=== PATIENT | female | born 1935 | race African-American/Black ===

== ENCOUNTER 2021-09-26 17:00 | Emergency (ER) | payer OTHER ==
[~2021-09-26] VITALS: Ht 162.6 cm; Wt 103.0 kg
[2021-09-26] MEDS ORDERED: KETOROLAC 30MG/ML VIAL IV STA (17:38)
[2021-09-26] MEDS ORDERED: SODIUM CHLORIDE 0.9% 1,000 ML IV ONE (17:45)
[2021-09-26] MEDS ORDERED: TRAMADOL 50MG TABLET PO ONE (21:30)
[2021-09-26] MEDS ORDERED: KETOROLAC 60MG/2ML VIAL IM ONE (21:30)
[2021-09-26] MEDS ORDERED: IBUP-2028 MT (21:38)
[2021-09-27 03:00] VITALS: BP 179/53
== END 2021-09-27 03:25 | disposition home or self-care (01) ==
LOC: ER 17:00
DX: L03.116 Cellulitis of left lower limb (principal); L03.115 Cellulitis of right lower limb; I11.0 Hypertensive heart disease with heart failure; I50.9 Heart failure, unspecified; E11.9 Type 2 diabetes mellitus without complications; E78.00 Pure hypercholesterolemia, unspecified
CPT/HCPCS: 71045; 93005; 93970; 96372; 99284; J1885; J7030

== ENCOUNTER 2021-10-06 22:04 | Inpatient (IN) | payer OTHER ==
[~2021-10-06] VITALS: Ht 165.1 cm; Wt 79.5 kg
[~2021-10-06 22:04] MED LIST: IBUP-2028 MT
[2021-10-07 01:17] LABS: CHLORIDE 104 mEq/L (98-107)
[2021-10-07 01:27] LABS: CREATINE KINASE 86 IU/L (26-192)
[2021-10-07 01:56] LABS: CLARITY URINE TURBID (CLEAR); COLOR URINE YELLOW (YELLOW); KETONES URINE TRACE (NEGATIVE); LEUKOCYTE ESTERASE URINE 2+ (NEGATIVE); NITRITE URINE NEGATIVE (NEGATIVE); OCCULT BLOOD URINE NEGATIVE (NEGATIVE); PH URINE 6.5 (4.5-8.0); PROTEIN URINE 1+ (NEGATIVE); SPECIFIC GRAVITY URINE 1.018 (1.005-1.030); UROBILINOGEN URINE 0.2 E.U./dL (0.2-1.0)
[2021-10-07] MEDS ORDERED: POTASSIUM CHLORIDE 20MEQ TABLET SR PO NR ×2 (02:30→09:45)
[2021-10-07] MEDS ORDERED: CEFTRIAXONE 1 G PREMIX 50 ML IV NR (02:30)
[2021-10-07 03:57] LABS: BASOPHILS % 0.8 % (0.0-2.0); EOSINOPHILS % 1.7 % (0.0-5.0); HEMATOCRIT. 35.2 % (36.0-48.0); HEMOGLOBIN. 11.7 g/dL (12.0-16.0); LYMPHOCYTES % 24.5 % (20.0-50.0); MEAN CORPUSCULAR VOLUME 90.4 fL (81.0-99.0); MEAN PLATELET VOLUME 9.8 fl (7.4-10.4); PLATELET 153 x1000/uL (130-400); RED BLOOD CELL COUNT 3.89 mill/uL (4.2-5.4); RED CELL DISTRIBUTION WIDTH 15.2 % (11.6-14.6)
[2021-10-07] MEDS ORDERED: IPRATROPIUM/ALBUTEROL 0.5-3(2.5)MG/3ML NEB NEB PRN (09:45)
[2021-10-07] MEDS ORDERED: NITROGLYCERIN 0.4MG TABLET SL SL PRN (09:45)
[2021-10-07] MEDS ORDERED: NA PHOS,M-B/NA PHOS,DI-BA ENEMA 118ML PR PRN (09:45)
[2021-10-07] MEDS ORDERED: MAGNESIUM/ALUMINUM HYDROXIDE/SIMETHICONE 30ML UDC PO PRN (09:45)
[2021-10-07] MEDS ORDERED: KCL 20MEQ/100ML PREMIX 100 ML IV NR ×2 (09:45→11:30)
[2021-10-07] MEDS ORDERED: CLONIDINE 0.1MG TABLET PO PRN (09:45)
[2021-10-07] MEDS ORDERED: DOCUSATE SODIUM 100MG CAPSULE PO PRN (09:45)
[2021-10-07] MEDS ORDERED: ONDANSETRON HCL 4MG/2ML INJ IV PRN (09:45)
[2021-10-07] MEDS ORDERED: DEXTROSE 50% WATER 50ML SYRINGE IV PRN (09:45)
[2021-10-07] MEDS ORDERED: TRAMADOL 50MG TABLET PO PRN (09:45)
[2021-10-07] MEDS ORDERED: KETOROLAC 15MG/ML VIAL IV PRN (09:45)
[2021-10-07] MEDS ORDERED: ACETAMINOPHEN 325MG TABLET PO PRN ×2 (09:45)
[2021-10-07] MEDS ORDERED: GUAIFENESIN 200MG/10ML SUGAR FREE UDC PO PRN (09:45)
[2021-10-07] MEDS ORDERED: NALOXONE HCL 0.4MG/ML VIAL IV PRN (10:00)
[2021-10-07] MEDS ORDERED: LEVOFLOXACIN 500MG PREMIX 100 ML IV SCH ×2 (10:00→11:00)
[2021-10-07] MEDS: BLOOD SUGAR DIAGNOSTIC STRIP TEST SCH ×3 (11:40→21:21)
[2021-10-07 11:52] VITALS: BP 148/62
[2021-10-07 12:00] VITALS: BP 148/62
[2021-10-07] MEDS: INSULIN LISPRO 100 UNITS/ML SUBCUT SCH ×3 (12:10→21:00)
[2021-10-07 12:31] LABS: FOLIC ACID (FOLATE) SERUM >20 ng/mL ng/mL (>5.38); VITAMIN B12 SERUM 1890 pg/mL (211-911)
[2021-10-07] MEDS ORDERED: TRAM50TA3 PO (12:37)
[2021-10-07] MEDS ORDERED: METO25TA6 PO (12:37)
[2021-10-07] MEDS ORDERED: ATOR40TA70 PO (12:37)
[2021-10-07] MEDS ORDERED: LOSA100T32 PO (12:37)
[2021-10-07] MEDS ORDERED: GABA-529 PO (12:37)
[2021-10-07] MEDS ORDERED: CEPH500C2 PO (12:37)
[2021-10-07] MEDS ORDERED: LATA2.5D14 EACHEYE (12:37)
[2021-10-07] MEDS ORDERED: DOXY100T29 PO (12:37)
[2021-10-07] MEDS ORDERED: MELO-104 PO (12:37)
[2021-10-07] MEDS ORDERED: FURO20TA4 PO (12:37)
[2021-10-07] MEDS: ZINC SULFATE 220 MG ( 50 ) CAPSULE PO SCH (13:18)
[2021-10-07] MEDS: CHOLECALCIFEROL (D3) 1000 UNIT TABLET PO SCH (13:18)
[2021-10-07] MEDS: ASCORBIC ACID 500 MG TABLET PO SCH ×2 (13:18→21:19)
[2021-10-07] MEDS: LOSARTAN POTASSIUM 50 MG TABLET PO SCH (13:18)
[2021-10-07] MEDS: SPIRONOLACTONE 25MG TABLET PO SCH ×2 (13:19→21:20)
[2021-10-07] MEDS: ASPIRIN 325MG EC TABLET PO SCH (13:19)
[2021-10-07] MEDS: ENOXAPARIN 40MG/0.4ML SYR SUBCUT SCH (13:20)
[2021-10-07] MEDS ORDERED: LIDOCAINE HCL 1% 10 MG/ML 10ML VIAL ONE (13:24)
[2021-10-07 16:00] VITALS: BP 168/59
[2021-10-07 17:00] VITALS: BP 144/64
[2021-10-07 20:00] VITALS: BP 140/51
[2021-10-07 20:55] LABS: CREATINE KINASE MB FRACTION 3.1 ng/mL (0.5-3.6)
[2021-10-07] MEDS ORDERED: ZOLPIDEM TARTRATE 5MG TABLET PO PRN (21:00)
[2021-10-07] MEDS ORDERED: CEFTRIAXONE 1,000 MG in DEXTROSE 5% WATER 50 ML IV SCH ×4 (21:00)
[2021-10-07] MEDS ORDERED: FAMOTIDINE 20MG TABLET PO SCH (21:00)
[2021-10-08] VITALS: BP 132/59
[2021-10-08 00:44] LABS: CREATINE KINASE MB FRACTION 2.9 ng/mL (0.5-3.6)
[2021-10-08 04:00] VITALS: BP 128/58
[2021-10-08] MEDS: BLOOD SUGAR DIAGNOSTIC STRIP TEST SCH ×2 (06:39→12:34)
[2021-10-08 07:03] LABS: BASOPHILS % 0.7 % (0.0-2.0); EOSINOPHILS % 2.1 % (0.0-5.0); HEMATOCRIT. 30.4 % (36.0-48.0); HEMOGLOBIN. 10.3 g/dL (12.0-16.0); LYMPHOCYTES % 27.2 % (20.0-50.0); MEAN CORPUSCULAR HEMOGLOBIN 30.8 pg (28.0-32.0); RED BLOOD CELL COUNT 3.35 mill/uL (4.2-5.4)
[2021-10-08] MEDS: INSULIN LISPRO 100 UNITS/ML SUBCUT SCH ×2 (07:10→12:10)
[2021-10-08 07:11] LABS: CHLORIDE 109 mEq/L (98-107)
[2021-10-08 07:28] LABS: PHOSPHORUS 2.2 mg/dL (2.5-4.9)
[2021-10-08 08:00] VITALS: BP 164/64
[2021-10-08] MEDS: LOSARTAN POTASSIUM 50 MG TABLET PO SCH (08:55)
[2021-10-08] MEDS: SPIRONOLACTONE 25MG TABLET PO SCH (08:55)
[2021-10-08] MEDS: ZINC SULFATE 220 MG ( 50 ) CAPSULE PO SCH (08:55)
[2021-10-08] MEDS: ASPIRIN 325MG EC TABLET PO SCH (08:55)
[2021-10-08] MEDS: CHOLECALCIFEROL (D3) 1000 UNIT TABLET PO SCH (08:55)
[2021-10-08] MEDS: ENOXAPARIN 40MG/0.4ML SYR SUBCUT SCH (08:55)
[2021-10-08] MEDS ORDERED: CEFTRIAXONE 1 G PREMIX 50 ML IV SCH (09:00)
[2021-10-08] MEDS: ASCORBIC ACID 500 MG TABLET PO SCH (09:27)
[2021-10-08 09:53] LABS: *AMPHETAMINES SCREEN URINE NEGATIVE (NEGATIVE); *BARBITURATES SCREEN URINE NEGATIVE (NEGATIVE); *BENZODIAZEPINES SCREEN URINE NEGATIVE (NEGATIVE); *COCAINE SCREEN URINE NEGATIVE (NEGATIVE); CANNABINOID URINE SCREEN NEGATIVE (NEGATIVE); METHADONE URINE SCREEN NEGATIVE (NEGATIVE); OPIATES URINE SCREEN NEGATIVE (NEGATIVE); PHENCYCLIDINE URINE SCREEN NEGATIVE (NEGATIVE)
[2021-10-08 10:57] LABS: MEAN PLATELET VOLUME 10.8 fl (7.4-10.4)
[2021-10-08 10:58] LABS: PLATELET 117 x1000/uL (130-400)
[2021-10-08 12:00] VITALS: BP 161/64
[2021-10-08] MEDS ORDERED: VANCOMYCIN 1500MG in DEXTROSE 5% WATER 250ML IV NR (13:00)
[2021-10-08 13:17] VITALS: BP 161/64
[2021-10-08] MEDS ORDERED: PIPERACILLIN/TAZOBACTAM 3.375 G in DEXTROSE 5% WATER 50 ML IV SCH (14:00)
[2021-10-09] MEDS ORDERED: VANCOMYCIN 1G PREMIX 200 ML IV SCH (12:00)
== END 2021-10-08 14:00 | disposition short-term general hospital (02) | DRG 871 ==
LOC: ER 22:04 → CANBEDREQ 10-07 04:59 → 7EST 10-07 07:15 → EDBEDREQ 10-07 07:26 → ENRESERV 10-07 08:55
PROVIDERS: ADMIT Internal Medicine; ATTEND Internal Medicine
PROC: 05H433Z Insertion of Infusion Device into Left Innominate Vein, Percutaneous Approach (ICD-10-PCS; principal; 2021-10-08)
PROC: B54NZZA Ultrasonography of Left Upper Extremity Veins, Guidance (ICD-10-PCS; 2021-10-08)
DX: A41.9 Sepsis, unspecified organism (principal); U07.1 COVID-19; E44.1 Mild protein-calorie malnutrition; N39.0 Urinary tract infection, site not specified; L03.116 Cellulitis of left lower limb; L03.115 Cellulitis of right lower limb; I89.0 Lymphedema, not elsewhere classified; E87.6 Hypokalemia; E11.9 Type 2 diabetes mellitus without complications; E78.00 Pure hypercholesterolemia, unspecified; I11.0 Hypertensive heart disease with heart failure; I50.9 Heart failure, unspecified; M19.90 Unspecified osteoarthritis, unspecified site; D64.9 Anemia, unspecified; Z88.8 Allergy status to other drugs, medicaments and biological substances; Z88.6 Allergy status to analgesic agent; Z88.1 Allergy status to other antibiotic agents; Z91.041 Radiographic dye allergy status; Z79.1 Long term (current) use of non-steroidal anti-inflammatories (NSAID); Z79.899 Other long term (current) drug therapy; Z68.29 Body mass index [BMI] 29.0-29.9, adult; Z98.890 Other specified postprocedural states
CPT/HCPCS: 36415; 36573; 71045; 80053; 80061; 80305; 81003; 82550; 82553; 82607; 82746; 82962; 83036; 83540; 83550; 83605; 83735; 83880; 84100; 84145; 84443; 84484; 85025; 87426; 87804; 93005; 93970; 99285; C1725; C1769; C9803; J0696; J1650; J1956; J2543; J3370; J3480; J3490; J7060

== ENCOUNTER 2021-11-16 20:28 | Emergency (ER) | payer MEDICARE, OTHER ==
[~2021-11-16] VITALS: Ht 172.7 cm; Wt 127.0 kg
[~2021-11-16 20:28] MED LIST changes: +ATOR40TA70 PO; +CEPH500C2 PO; +DOXY100T29 PO; +FURO20TA4 PO; +GABA-529 PO; +LATA2.5D14 EACHEYE; +LOSA100T32 PO; +MELO-104 PO; +METO25TA6 PO; +TRAM50TA3 PO
[2021-11-16] MEDS ORDERED: ASPIRIN 81MG TABLET PO ONE (20:45)
[2021-11-16 22:09] LABS: BASOPHILS % 0.9 % (0.0-2.0); EOSINOPHILS % 2.9 % (0.0-5.0); HEMATOCRIT. 30.9 % (36.0-48.0); HEMOGLOBIN. 10.2 g/dL (12.0-16.0); LYMPHOCYTES % 13.6 % (20.0-50.0); MEAN CORPUSCULAR HEMOGLOBIN 30.6 pg (28.0-32.0); MEAN CORPUSCULAR VOLUME 92.6 fL (81.0-99.0); MEAN PLATELET VOLUME 9.7 fl (7.4-10.4); MONOCYTES % 8.2 % (2.0-8.0); NEUTROPHILS % 74.4 % (40.0-76.0); PLATELET 140 x1000/uL (130-400); RED BLOOD CELL COUNT 3.34 mill/uL (4.2-5.4); RED CELL DISTRIBUTION WIDTH 15.8 % (11.6-14.6)
[2021-11-16 22:26] LABS: CHLORIDE 101 mEq/L (98-107)
[2021-11-16] MEDS ORDERED: SODIUM CHLORIDE 0.9% 1000ML BAG (SEPSIS BOLUS) IV NR (23:15)
[2021-11-17 06:04] VITALS: BP 113/50
== END 2021-11-17 06:36 | disposition short-term general hospital (02) ==
LOC: ER 20:28
DX: R55 Syncope and collapse (principal); N28.9 Disorder of kidney and ureter, unspecified; U07.1 COVID-19; I11.0 Hypertensive heart disease with heart failure; I50.9 Heart failure, unspecified; E11.9 Type 2 diabetes mellitus without complications; E78.00 Pure hypercholesterolemia, unspecified; Z79.899 Other long term (current) drug therapy; Z20.822 Contact with and (suspected) exposure to COVID-19
CPT/HCPCS: 36415; 70450; 71045; 80053; 83605; 83690; 83880; 84484; 85025; 87426; 93005; 96360; 96361; 99291; C9803; J7030

== ENCOUNTER 2024-09-13 01:26 | Emergency (ER) | payer OTHER ==
[~2024-09-13] VITALS: Ht 167.6 cm; Wt 84.0 kg
[~2024-09-13 01:26] MED LIST changes: -LATA2.5D14 EACHEYE; +LATA2.5D7 EACHEYE; -LOSA100T32 PO; +LOSA100T33 PO
[2024-09-13 01:30] VITALS: O2SAT 98
[2024-09-13 01:54] VITALS: TEMP 36.8
[2024-09-13 01:56] LABS: BASOPHILS % 0.6 % (0.0-2.0); EOSINOPHILS % 3.1 % (0.0-5.0); HEMATOCRIT. 32.1 % (36.0-48.0); HEMOGLOBIN. 10.4 g/dL (12.0-16.0); LYMPHOCYTES % 35.8 % (20.0-50.0); MEAN CORPUSCULAR HEMOGLOBIN 31.7 pg (28.0-32.0); MEAN CORPUSCULAR HGB CONC 32.3 g/dL (31.0-37.0); MONOCYTES % 10.6 % (2.0-8.0); NEUTROPHILS % 49.9 % (40.0-76.0); PLATELET 157 x1000/uL (130-400); RED BLOOD CELL COUNT 3.28 mill/uL (4.2-5.4); RED CELL DISTRIBUTION WIDTH 14.9 % (11.6-14.6); WHITE BLOOD COUNT 7.9 x1000/uL (4.5-11.0)
[2024-09-13 02:04] LABS: CHLORIDE 103 mEq/L (98-107); POTASSIUM 4.5 mEq/L (3.5-5.1); SODIUM 139 mEq/L (136-145)
[2024-09-13 02:05] LABS: CALCIUM 9.4 mg/dL (8.7-10.4); CARBON DIOXIDE 28 mEq/L (21-32)
[2024-09-13 02:10] LABS: CREATININE 1.1 mg/dL (0.6-1.0); GLUCOSE 129 mg/dL (70-105); UREA NITROGEN BLOOD 18 mg/dL (9-23)
[2024-09-13 02:11] LABS: ETHANOL BLOOD < 10 mg/dL (<10); TROPONIN I HIGH SENSITIVITY 6 ng/L (3.0-34)
[2024-09-13 02:45] LABS: PROTHROMBIN TIME 10.4 sec (9.6-11.0)
[2024-09-13 04:21] LABS: *AMPHETAMINES SCREEN URINE NEGATIVE (NEGATIVE); *BARBITURATES SCREEN URINE NEGATIVE (NEGATIVE); *BENZODIAZEPINES SCREEN URINE NEGATIVE (NEGATIVE); *COCAINE SCREEN URINE NEGATIVE (NEGATIVE); CANNABINOID URINE SCREEN NEGATIVE (NEGATIVE); CLARITY URINE CLEAR (CLEAR); COLOR URINE YELLOW (YELLOW); GLUCOSE URINE NEGATIVE (NEGATIVE); KETONES URINE NEGATIVE (NEGATIVE); LEUKOCYTE ESTERASE URINE 3+ (NEGATIVE); METHADONE URINE SCREEN NEGATIVE (NEGATIVE); NITRITE URINE NEGATIVE (NEGATIVE); OCCULT BLOOD URINE NEGATIVE (NEGATIVE); OPIATES URINE SCREEN NEGATIVE (NEGATIVE); PHENCYCLIDINE URINE SCREEN NEGATIVE (NEGATIVE); PROTEIN URINE NEGATIVE (NEGATIVE); SPECIFIC GRAVITY URINE 1.006 (1.005-1.030); UROBILINOGEN URINE 0.2 E.U./dL (0.2-1.0)
[2024-09-13 04:22] LABS: ECSTASY MDMA SCREEN URINE NEGATIVE (NEGATIVE)
[2024-09-13 04:48] VITALS: BP 135/35; PULSE 80; RESP 13; O2SAT 97
[2024-09-13 04:48] LABS: SQUAMOUS EPITHELIAL CELL URINE 3+ /lpf (RARE/1+)
[2024-09-13 04:49] LABS: AMORPHOUS SEDIMENT URINE 1+ /lpf; BACTERIA URINE 1+; RBC URINE 0-2 /hpf (0-2)
== END 2024-09-13 05:27 | disposition short-term general hospital (02) ==
LOC: ER 01:26
DX: R60.0 Localized edema (principal); R26.9 Unspecified abnormalities of gait and mobility; I11.0 Hypertensive heart disease with heart failure; I50.9 Heart failure, unspecified; E11.9 Type 2 diabetes mellitus without complications; E78.00 Pure hypercholesterolemia, unspecified; Z00.00 Encounter for general adult medical examination without abnormal findings; Z91.041 Radiographic dye allergy status; Z88.8 Allergy status to other drugs, medicaments and biological substances; Z88.5 Allergy status to narcotic agent; Z79.899 Other long term (current) drug therapy
CPT/HCPCS: 36415; 71045; 80048; 80305; 80320; 81003; 83880; 84484; 85025; 93005; 93970; 99285; G0480

== ENCOUNTER 2024-10-25 16:56 | Emergency (ER) | payer OTHER ==
[~2024-10-25] VITALS: Ht 167.6 cm; Wt 127.0 kg
[~2024-10-25 16:56] MED LIST changes: +LATA2.5D14 EACHEYE; -LATA2.5D7 EACHEYE
[2024-10-25 17:00] VITALS: O2SAT 100
[2024-10-25 18:08] LABS: BASOPHILS % 0.4 % (0.0-2.0); EOSINOPHILS % 0.8 % (0.0-5.0); HEMATOCRIT. 31.0 % (36.0-48.0); HEMOGLOBIN. 9.9 g/dL (12.0-16.0); LYMPHOCYTES % 8.7 % (20.0-50.0); MEAN PLATELET VOLUME 8.7 fl (7.4-10.4); MONOCYTES % 9.1 % (2.0-8.0); NEUTROPHILS % 81.0 % (40.0-76.0); PLATELET 156 x1000/uL (130-400); RED BLOOD CELL COUNT 3.25 mill/uL (4.2-5.4); RED CELL DISTRIBUTION WIDTH 14.4 % (11.6-14.6)
[2024-10-25 18:15] LABS: INR 1.1
[2024-10-25 18:19] LABS: CREATININE 1.0 mg/dL (0.6-1.0); TROPONIN I HIGH SENSITIVITY 7 ng/L (3.0-34); UREA NITROGEN BLOOD 18 mg/dL (9-23)
[2024-10-25 18:20] LABS: ASPARTATE AMINOTRANSFERASE 12 IU/L (<34)
[2024-10-25 18:21] LABS: BILIRUBIN DIRECT 0.2 mg/dL (<=3.0); BILIRUBIN TOTAL 0.5 mg/dL (0.1-1.0); PROTEIN TOTAL 7.2 g/dL (6.0-8.3)
[2024-10-25 18:41] LABS: ERYTHROCYTE SEDIMENTATION RATE 106 mm/hr (0-42)
[2024-10-25] MEDS: MORPHINE SULFATE 4 MG/ML INJ (FOR IV/IM USE) IV ONE (19:16)
[2024-10-25] MEDS: FUROSEMIDE 40MG/4ML VIAL IVP ONE (19:16)
[2024-10-25] MEDS: CEFEPIME 2GM/100ML 100 ML IV SCH (20:09)
[2024-10-25] MEDS: VANCOMYCIN 2GM PMX (XELLIA) 400 ML IV SCH (20:43)
[2024-10-25 21:25] VITALS: BP 140/56; PULSE 106; RESP 20; TEMP 36.8; O2SAT 99
[2024-10-25] MEDS ORDERED: CEFEPIME 2GM/50ML DUPLEX 50 ML IV SCH (22:00)
== END 2024-10-25 21:54 | disposition short-term general hospital (02) ==
LOC: ER 16:56 → CMPBEDREQ 10-26 07:34
DX: L03.116 Cellulitis of left lower limb (principal); R26.2 Difficulty in walking, not elsewhere classified; E11.9 Type 2 diabetes mellitus without complications; E78.00 Pure hypercholesterolemia, unspecified; I11.0 Hypertensive heart disease with heart failure; I50.9 Heart failure, unspecified; Z91.041 Radiographic dye allergy status; Z88.8 Allergy status to other drugs, medicaments and biological substances; Z88.5 Allergy status to narcotic agent; Z79.899 Other long term (current) drug therapy
CPT/HCPCS: 99285; 93970; 96365; 96375; 71045; 80076; 80048; 83880; 83735; 85025; 85610; 85651; 85730; 84484; 36415; 93005; J3373; J0692; J1938; J2270; A4606

== ENCOUNTER 2024-12-27 15:17 | Emergency (ER) | payer OTHER ==
[~2024-12-27] VITALS: Ht 162.6 cm; Wt 109.0 kg
[~2024-12-27 15:17] MED LIST changes: -LATA2.5D14 EACHEYE; +LATA2.5D7 EACHEYE
[2024-12-27 15:21] VITALS: O2SAT 100
[2024-12-27] MEDS: SODIUM CHLORIDE 0.9% 1,000 ML IV ONE (16:20)
[2024-12-27] MEDS: ACETAMINOPHEN 500MG TABLET PO ONE (16:41)
[2024-12-27 18:15] LABS: HEMATOCRIT. 27.7 % (36.0-48.0); HEMOGLOBIN. 9.1 g/dL (12.0-16.0); MEAN PLATELET VOLUME 8.4 fl (7.4-10.4); PLATELET 101 x1000/uL (130-400); RED BLOOD CELL COUNT 2.93 mill/uL (4.2-5.4); RED CELL DISTRIBUTION WIDTH 17.0 % (11.6-14.6)
[2024-12-27 18:28] LABS: INR 1.0
[2024-12-27 18:30] LABS: TROPONIN I HIGH SENSITIVITY 7 ng/L (3.0-34)
[2024-12-27 18:31] LABS: UREA NITROGEN BLOOD 24 mg/dL (9-23)
[2024-12-27 18:32] LABS: ASPARTATE AMINOTRANSFERASE 69 IU/L (<34)
[2024-12-27 18:33] LABS: BILIRUBIN DIRECT < 0.1 mg/dL (<=3.0); BILIRUBIN TOTAL 0.2 mg/dL (0.1-1.0); PROTEIN TOTAL 6.3 g/dL (6.0-8.3)
[2024-12-27 18:34] LABS: CREATININE 1.6 mg/dL (0.6-1.0)
[2024-12-27 19:15] LABS: EOSINOPHILS % MANUAL 18.0 % (0.0-5.0); LYMPHOCYTES % MANUAL 19.0 % (20.0-60.0); MONOCYTES % MANUAL 9.0 % (2.0-8.0); NEUTROPHILS % MANUAL 54.0 % (45.0-75.0); PLATELET ESTIMATE SLIGHTLY DECREASED
[2024-12-27 22:30] VITALS: BP 129/85; PULSE 61; RESP 18; TEMP 37; O2SAT 99
== END 2024-12-27 23:05 | disposition short-term general hospital (02) ==
LOC: ER 15:17 → CMPBEDREQ 12-28 08:00
DX: N17.9 Acute kidney failure, unspecified (principal); R53.1 Weakness; H40.9 Unspecified glaucoma; E11.9 Type 2 diabetes mellitus without complications; I11.0 Hypertensive heart disease with heart failure; I50.9 Heart failure, unspecified; Z88.8 Allergy status to other drugs, medicaments and biological substances; Z91.041 Radiographic dye allergy status; Z88.5 Allergy status to narcotic agent; Z88.6 Allergy status to analgesic agent
CPT/HCPCS: 99285; 70450; 96360; 71045; 80076; 80048; 83880; 83690; 83735; 85025; 85610; 85730; 86850; 86900; 86901; 84484; 36415; 74176; J7030